=== PATIENT | female | born 1970 | race Caucasian/White ===

== ENCOUNTER 2016-08-15 23:47 | Inpatient (IN) ==
[2016-08-16] MEDS ORDERED: PANTOPRAZOLE 40 MG VIAL IV STA (00:15)
[2016-08-16] MEDS ORDERED: METOCLOPRAMIDE 10 MG/2 ML VIAL IV STA (00:15)
[2016-08-16] MEDS ORDERED: ONDANSETRON 4 MG/2 ML VIAL IV STA (00:15)
--- NOTE | 2016-08-16 00:21 | Emergency Department Note ---
Arrival - Arrival Chief Complaint: Abdominal / Flank Pain Stated Complaint: upper right side abdominal pain ED Nursing Triage Note: C/C N/V, severa right upper abd pain that radiated into right flank. Mode of Arrival: Ambulatory Limitations: No Limitations Source: Patient Time Seen by Provider: 08/16/16 00:15 - History of Present Illness HPI Narrative: This 46-year-old white female presents with complaints of within 15 minutes after completing dinner, onset of right upper quadrant pain radiating to the back associated with nausea and vomiting without chills, fever, or diarrhea. The patient does not have a history per se of gallbladder disease but does have a history of renal stone disease although the distribution of pain is much different than previously. She denies a history of peptic ulcer disease, pancreatitis, regional enteritis, or other GI related disease. Currently although she appears uncomfortable she is in no acute medical distress Onset (ago): hour(s) (Patient presents 4 hours post onset of symptoms) Consistency: constant Allergies/Adverse Reactions: Allergies Allergy/AdvReac Type Severity Reaction Status Date / Time metronidazole [From Flagyl] Allergy Nausea Verified 08/15/16 23:55 Review of System - Review of System 12 point system: reviewed and no additional remarkable complaints except as stated - Review of System Constitutional: Present: as per HPI Gastrointestinal: Present: as per HPI Medical,Surgical,& Family Hx - Medical History Psychological: History of: ADHD, Depression Neurology: History of: Migraine Genitourinary: History of: Kidney Stones Gastrointestinal: History of: GI Problems (ibs) Musculoskeletal: History of: Back/Neck Problems (back spasms) - Surgical History Reproductive Surgeries: Surgical HX of;: Hysterectomy - Social History Smoking Status: Never smoker Frequency of Alcohol Use: None Type of Drug Use: None Exam Physical Examination: GENERAL: Well developed, well nourished white female in no acute distress. HEENT: Normocephalic. No trauma. Moist mucous membranes. EOMI. PERRLA. ENT NML NECK: Supple. No adenopathy. CARDIAC: Regular. No murmurs. CHEST: Clear to auscultation. No respiratory distress. ABDOMEN: Soft. Very tender right upper quadrant. Hypoactive bowel sounds. EXTREMITIES: No trauma. Normal ROM. No pedal edema. SKIN: No diaphoresis. No rash. NEURO: Alert. Neuro intact. But unusual affect no focal deficits. Vital Signs: Vital Signs Temperature 97.9 F 08/15/16 23:52 Pulse Rate 80 08/15/16 23:52 Respiratory Rate 20 08/15/16 23:52 Blood Pressure 160/108 08/15/16 23:52 O2 Sat by Pulse Oximetry 100 08/15/16 23:52 Course - Reevaluation(s) Reevaluation #1: Discussed with patient need for hospitalization and operative intervention. - Consultations Consultation #1: Discussed with Dr. Alfaro who will admit for further evaluation treatment. Results - Labs CBC & BMP: 08/16/16 00:07 08/16/16 00:07 Labs: I reviewed the patient's laboratory noted its normalcy - Diagnostic Findings Procedure: CT Abdomen and Pelvis: image reviewed by me, report reviewed by me ( No evidence of renal stone but confirmation of gallbladder stones and sludge), Ultrasound: image reviewed by me, report reviewed by me (Dilated gallbladder with thickened gallbladder wall as well as evidence of multiple stones.) Disposition Clinical Impression: Cholecystitis, Cholelithiasis Case discussed with: patient, patient's family Disposition: Still a Patient Condition: Stable Time of Disposition: 01:42
[2016-08-16] MEDS ORDERED: PANTOPRAZOLE 40 MG VIAL IV ONE (00:23)
[2016-08-16 00:24] LABS: Basophils # 0.1 10*3/uL (0.0-0.2); Basophils % 0.6 % (0.0-0.8); Eosinophils # 0.3 10*3/uL (0.0-0.87); Eosinophils % 3.2 % (0.00-10.9); Hematocrit 39.9 VOL% (35.7-47.0); Hemoglobin 12.7 GM/DL (12.0-16.0); Immature Granulocytes % 0.3 %; Immature Granulocytes Absolute 0.03 #; Lymphocytes # 3.2 10*3/uL (1.4-4.0); Lymphocytes % 35.6 % (21.3-54.2); Mean Corpuscular HGB Conc 31.8 GM/DL (32-36); Mean Corpuscular Hemoglobin 29 PG (27-34); Mean Corpuscular Volume 89.9 FL (87-102); Monocytes # 0.9 10*3/uL (0.11-0.8); Monocytes % 9.7 % (1.7-12.7); Neutrophils # 4.5 10*3/uL (1.4-7.4); Neutrophils % 50.6 % (38.7-73.9); Platelet Count 305 T/CUMM (130-400); Red Blood Count 4.44 MC/CUMM (3.8-5.5); Red Cell Distribution Width 12.4 % (9.3-17.3); White Blood Count 8.9 T/CUMM (4-12)
[2016-08-16] MEDS ORDERED: ONDANSETRON 4 MG/2 ML VIAL ONE ×2 (00:24→10:19)
[2016-08-16] MEDS ORDERED: METOCLOPRAMIDE 10 MG/2 ML VIAL ONE (00:24)
[2016-08-16 00:45] LABS: Albumin 4.1 G/DL (3.4-5.0); Bilirubin,Total 0.5 MG/DL (0.2-1.0); Calcium 9.3 MG/DL (8.5-10.1); Osmolality,Calculated 278.4 MOS/KG (273-304); Total Protein 6.8 G/DL (6.4-8.3)
[2016-08-16] MEDS ORDERED: HYDROmorphone 2 MG/1 ML VIAL ONE ×2 (00:50→12:01)
[2016-08-16] MEDS ORDERED: HYDROmorphone 2 MG/1 ML VIAL IV STA (00:51)
[2016-08-16] MEDS ORDERED: LEVOFLOXACIN INJ 750 MG in PREMIX 1 EACH IV STA (00:51)
[2016-08-16] MEDS ORDERED: LEVOFLOXACIN INJ 150 ML IV ONE (01:37)
[2016-08-16] MEDS ORDERED: HYDROmorphone 2 MG/1 ML VIAL IV PRN (01:39)
[2016-08-16] MEDS ORDERED: ONDANSETRON 4 MG/2 ML VIAL IV PRN (01:39)
[2016-08-16] MEDS: SODIUM CHLORIDE 0.9% 1,000 ML IV SCH ×3 (02:50→21:18)
[2016-08-16 04:55] LABS: Apearance,Urine CLOUDY (Clear); Bilirubin,Urine Negative (Negative); Blood, Urine Negative (Negative); Glucose,Urine (UA) Negative (Negative); Ketones,Urine Negative (Negative); Mucus,Urine Few /LPF (Occasional); Nitrite,Urine Negative (Negative); Protein,Urine Negative; RBC,Urine 1 /HPF (0-4); Squamous Epithelial Cell,Urine Occasional /HPF (0-10); Urine Color Yellow (Yellow); Urine Specific Gravity 1.017 (1.001-1.035); Urine Urobilinogen < 2.0 EU/DL (0.2-1.0); WBC,Urine 1 /HPF (0-6)
--- NOTE | 2016-08-16 07:37 | CT Report ---
History is kidney stones, epigastric abdominal pain There is gallbladder distention with very minimal indistinctness in the surrounding fat. No secondary signs of acute ureteral obstruction seen Bowel is unopacified No enlarged retroperitoneal nodes seen Pelvis: No free fluid or focal laboratory changes seen Impression: Nonspecific gallbladder distention with minimal indistinctness in the surrounding fat. Is there any clinical question of acute cholecystitis? The CT exam was performed using one or more of the following dose reduction techniques: Automated exposure control, adjustment of the mA and/or kV according to patient size, or use of iterative reconstruction technique. PROCEDURE INTERPRETED AT [facility] DEPARTMENT OF RADIOLOGY Final Report Signed by: Dr. Karen Rogers
--- NOTE | 2016-08-16 09:12 | General Surg History&Physical ---
Assessment and Plan (1) Acute cholecystitis Status: Acute Assessment and plan: Impression: Acute cholecystitis next Plan: Patient's history and exam is consistent with acute cholecystitis. On ultrasound she had sludge and debris in the gallbladder which was distended as well as gallbladder wall thickening. Common bile duct was dilated but no stones seen within the common bile duct. CT scan showed no other pathology. LFTs are normal. I've discussed options with the patient and she would like to proceed with cholecystectomy. We discussed the procedure in house performed and the anticipated recovery. The risk of the procedure including bleeding, infection, damage to surrounding structures, need for further surgery, injury to the biliary tree, need for postoperative ERCP, and conversion to an open procedure were all discussed in detail. She would like to proceed as soon as possible. Current Visit: Yes History of Present Illness Chief complaint: abdominal pain History of present illness: Ms. Gomez is a 46 year old female who presented to the emergency room with abdominal pain. She was seen at an outside facility and transferred here with a diagnosis of cholecystitis. She ate supper late last night and about 30 minutes to an hour after eating began to develop epigastric pain and right upper quadrant pain. She had nausea and vomiting which did not relieve the pain. She denies any fever. She has no chest pain or shortness of breath. She has no heart or lung problems. Previous surgeries include cervical fusion hysterectomy diagnostic laparoscopy for endometriosis and appendectomy. She has a history of irritable bowel. She's never had any pain like this before. Home Medications Medication Instructions Recorded Confirmed Type No Known Home Medications [No 08/16/16 08/16/16 History Known Home Medications] Allergies Allergy/AdvReac Type Severity Reaction Status Date / Time metronidazole [From Flagyl] Allergy Nausea Verified 08/15/16 23:55 Medical,Surgical,& Family Hx - Medical History Psychological: History of: ADHD, Depression Neurology: History of: Migraine Genitourinary: History of: Kidney Stones Gastrointestinal: History of: Hemorrhoids (surgery), GI Problems (ibs) Musculoskeletal: History of: Back/Neck Problems (back spasms) Hematology: History of: Anemia Reproductive: History of: Endometriosis - Surgical History HEENT Surgeries: Surgical HX of: Tonsilectomy & Adenoidectomy (both) Reproductive Surgeries: Surgical HX of;: Hysterectomy (total) Orthopedic Surgeries: Surgical HX of;: Spinal Surgery (c6-7 cervical fusion) - Family History Family History: Reports;: Family Diabetes (father), Family Hypertension (father) - Social History Smoking Status: Never smoker Frequency of Alcohol Use: None Type of Drug Use: None Exam - Constitutional Vitals: Period Temp Pulse Resp BP Sys/Rosenthal Pulse Ox Last 24 Hr 96.8 F-99.3 F 77-89 18-20 106-150/60-92 100-100 General appearance: no acute distress - Head Head exam: Present: normocephalic - Neck Neck exam: Present: normal inspection - Respiratory Respiratory exam: Present: clear to auscultation bilaterally - Cardiovascular Cardiovascular exam: Present: RRR - GI/Abdominal GI/Abdominal exam: Present: soft (very tender to palpation in the right upper quadrant with positive Evans sign. Remainder of abdomen is benign. Nondistended.) - Extremities Exam Extremities exam: Present: normal inspection - Back Exam Back exam: Present: normal inspection - Neurological Exam Neurological exam: Present: alert, oriented X3 Speech: Present: normal - Skin Skin exam: Present: normal color 12 point system: reviewed and no additional remarkable complaints except as stated Results - Labs CBC & BMP: 08/16/16 00:07 08/16/16 00:07 Lab Results: I have reviewed the past 24 hour labs - Diagnostic Findings Procedure: CT Abdomen and Pelvis: image reviewed by me, report reviewed by me, Ultrasound: report reviewed by me
[2016-08-16] MEDS ORDERED: LIDOCAINE 2%/EPI 20 ML VIAL ONE (09:23)
[2016-08-16] MEDS ORDERED: BUPIVACAINE MPF 0.25% /EPI 30 ML VIAL ONE (09:23)
[2016-08-16] MEDS ORDERED: TISSUE ADHESIVE 1 EACH APPLICATOR TOP ONE (09:24)
[2016-08-16] MEDS: METOCLOPRAMIDE 10 MG/2 ML VIAL IV SCH ×3 (09:36→21:10)
[2016-08-16] MEDS: PANTOPRAZOLE 40 MG VIAL IV SCH (09:38)
[2016-08-16] MEDS ORDERED: SCOPOLAMINE 1.5 MG PATCH TRANSDERM ONE ×2 (09:56→10:06)
[2016-08-16] MEDS ORDERED: LIDOCAINE 100 MG/5 ML SYRINGE ONE (10:19)
[2016-08-16] MEDS ORDERED: ROCURONIUM 100 MG/10 ML VIAL IV ONE (10:19)
[2016-08-16] MEDS ORDERED: DEXAMETHASONE 10 MG/1 ML VIAL ONE (10:19)
[2016-08-16] MEDS ORDERED: KETOROLAC 30 MG/1 ML VIAL ONE (10:19)
[2016-08-16] MEDS ORDERED: PHENYLEPHRINE 1 MG/10 ML SYRINGE IV ONE (10:19)
[2016-08-16] MEDS ORDERED: PROPOFOL 200 MG/20 ML VIAL IV ONE (10:19)
[2016-08-16] MEDS ORDERED: GLUCAGON 1 MG VIAL ONE (10:58)
--- NOTE | 2016-08-16 11:58 | Operative Note ---
Date of procedure: 08/16/16 Pre-op diagnosis: acute cholecystitis Post-op diagnosis: same (choledocholithiasis as well) Procedure: Procedure performed: Laparoscopic cholecystectomy with intraoperative cholangiogram #2 supervision and interpretation of fluoroscopy next Procedure in detail: After informed consent was obtained, the patient was taken operating suite and laid supine on the operating table. After general anesthesia was induced the abdomen was prepped and draped in usual sterile fashion. After procedural pause local anesthetic and straighten the skin and subcutaneous tissue just above the umbilicus. Incision was made and dissection carried down through skin and soft tissue. Fascia identified and grasped with Dakota's and elevated. Fascial incision was made. Abdominal cavity was entered bluntly. Finger sweep revealed no adhesions. Pierce trocar inserted and the bowel and mesentery in the area were inspected and found be free of any violation. Next patient was patient reverse Trendelenburg position rotated to the left. 25 mm trochars placed in the right upper quadrant 11 mm subxiphoid trocar was placed all under visualization. Gallbladder identified it appeared slightly ischemic and inflamed. There was not a lot of inflammation in the triangle of [place]. All bleeders retracted superiorly. Infundibulum the gallbladder retracted toward the right hip. Dissection carried out from a lateral to medial approach and the triangle of [place]. The cystic duct and cystic artery were identified and isolated. Using a critical view technique these were all 2 structures entering the gallbladder. A clip was placed the junction of the cystic duct and neck of the gallbladder and partial transection might on the cystic duct. Going to catheter inserted and secured in place. Intraoperative glandular and performed. Cystic duct common bile duct intra- next hepatic ducts all filled. There was no contrast seen entering the small bowel. There appeared to be a small meniscus at the bottom of the contrast at the common bile duct and I suspect this represents a very small stone. Intraoperative IV glucagon was given and I waited over 10 minutes and tried to flushed the duct but was unsuccessful in getting any further contrast to reach the small bowel. The cholangiocatheter was removed and 2 clips placed on the cystic duct just distal to the partial transection and the transection completed. Anterior and posterior branch of the cystic artery were dissected and triple clipped and transected high up along the gallbladder wall. The gallbladder was removed from the gallbladder fossa using hook cautery and placed in the Endo Catch sac. It was removed through the Pierce trocar site. Pneumoperitoneum reachieved. Right upper quadrant thoroughly irrigated and suctioned. Clips inspected found be intact no leakage of bilious or sanguinous fluid. Irrigant remained clear was all suctioned. There was good hemostasis. 10 Romansh Doni drain placed in the gallbladder fossa and brought out through the lateral trocar site secured in place with 2-0 nylon. Remaining trochars were removed as the abdomen was desufflated. Fascia at the Pierce trocar site closed using 0 Vicryl [id number] interrupted suture. Wounds irrigated and suction. Deep dermal layer closed with 3-0 Vicryl. 4 Monocryl used to close skin. Sterile dressings applied. Patient was extubated and taken recovery room in stable condition. All lap and needle counts were correct at the end of the case. The gallbladder was palpated before sending to pathology and I could feel a few very small stones within the lumen. Anesthesia: MARIEA Surgeon / Physician: Brendan Loredo Estimated blood loss: other (less than 25 mL) Specimens: other (gallbladder) Condition: stable Disposition: PACU Results - Labs CBC & BMP: 08/16/16 00:07 08/16/16 00:07 Discharge Plan - Discharge Medications No Action No Known Home Medications [No Known Home Medications] - Follow Up or Referral - Forms/Instructions
--- NOTE | 2016-08-16 11:59 | Anesthesia ---
Anesthesia Post OP - Post Ansesthetic Evaluation Patient seen in post op: Yes Resp: within normal limits CV: within normal limits Mental: within normal limits Temp: within normal limits [id number]: within normal limits Nausea and Vomiting: within normal limits Pain: within normal limits
[2016-08-16] MEDS ORDERED: SEVOFLURANE 1 UNIT/15 MINUTE INH ONE (12:00)
[2016-08-16] MEDS ORDERED: fentaNYL 100 MCG/2 ML VIAL ONE (12:01)
[2016-08-16] MEDS ORDERED: MIDAZOLAM 2 MG/2 ML VIAL ONE (12:01)
--- NOTE | 2016-08-16 14:54 | Fluoroscopy Report ---
History is abdominal pain, cholecystectomy 84 seconds fluoroscopy time provided in the operating room during an OR cholangiogram performed by the referring physician. There is dilatation of the common bile duct with a tiny persistent rounded filling defect in the distal common duct. No contrast passes into the duodenum. impression: Obstructive, tiny distal common bile duct stone PROCEDURE INTERPRETED AT [facility] DEPARTMENT OF RADIOLOGY Final Report Signed by: Dr. Karen Rogers
[2016-08-17] MEDS: LEVOFLOXACIN INJ 750 MG in PREMIX 1 EACH IV SCH (03:17)
[2016-08-17] MEDS: METOCLOPRAMIDE 10 MG/2 ML VIAL IV SCH ×4 (03:18→20:40)
[2016-08-17 06:39] LABS: Basophils % 0.1 % (0.0-0.8); Hematocrit 34.1 VOL% (35.7-47.0); Hemoglobin 10.9 GM/DL (12.0-16.0); Immature Granulocytes % 0.4 %; Immature Granulocytes Absolute 0.03 #; Lymphocytes # 1.8 10*3/uL (1.4-4.0); Lymphocytes % 22.3 % (21.3-54.2); Mean Corpuscular Hemoglobin 29 PG (27-34); Mean Corpuscular Volume 90.7 FL (87-102); Mean Platelet Volume 10.4 FL (9.6-12.0); Monocytes # 0.9 10*3/uL (0.11-0.8); Monocytes % 11.5 % (1.7-12.7); Neutrophils # 5.4 10*3/uL (1.4-7.4); Neutrophils % 65.7 % (38.7-73.9); Platelet Count 236 T/CUMM (130-400); Red Blood Count 3.76 MC/CUMM (3.8-5.5); Red Cell Distribution Width 12.6 % (9.3-17.3); White Blood Count 8.2 T/CUMM (4-12)
[2016-08-17 06:48] LABS: INR 1.1; PT Patient Result 11.7 SECS
[2016-08-17] MEDS: SODIUM CHLORIDE 0.9% 1,000 ML IV SCH ×3 (06:56→20:39)
[2016-08-17 07:01] LABS: Bilirubin,Direct 0.6 MG/DL (0.0-0.20); Bilirubin,Indirect 0.3 MG/DL (0.0-1.0); Bilirubin,Total 0.9 MG/DL (0.2-1.0); Total Protein 5.4 G/DL (6.4-8.3)
[2016-08-17 07:09] LABS: Albumin 3.1 G/DL (3.4-5.0); Bilirubin,Total 0.9 MG/DL (0.2-1.0); Calcium 8.4 MG/DL (8.5-10.1); Osmolality,Calculated 279.3 MOS/KG (273-304); Total Protein 5.4 G/DL (6.4-8.3)
--- NOTE | 2016-08-17 08:14 | Event Note ---
Status post laparoscopic cholecystectomy. Patient is doing well. She feels better since surgery. She is nothing by mouth for ERCP today. She had a tiny stone in her common duct which is unable to be flushed even with administration of glucagon. I discussed the case with Dr. Macdonald. He'll plan for ERCP today. Her abdomen is soft and appropriately tender and nondistended. The incisions are okay and the GANESH drain has nonbilious output.
--- NOTE | 2016-08-17 08:42 | Gastrointestinal Consult Note ---
<Janessa Maloney - Last Filed: 08/17/16 08:37> Assessment and Plan (1) Choledocholithiasis Status: Acute Assessment and plan: 08/17-sudden onset abdominal pain with nausea and vomiting with findings of cholecystitis. Status post laparoscopic cholecystectomy on yesterday with intraoperative cholangiogram showing tiny common bile duct stone. Elevated LFTs today. Plan to proceed with ERCP today. Plan an addendum to followed by Dr. Almendarez Current Visit: Yes History of Present Illness Chief complaint: Choledocholithiasis History of present illness: Ms. Gomez is a 46 year old female who presented to the emergency room with onset of abdominal pain. She was originally diagnosed with cholecystitis at an outside facility and transferred to our facility for further care. Patient states that she had a sudden onset of right upper quadrant pain with nausea and vomiting shortly after ingesting a meal on Tuesday night. She had denied any fever chills diarrhea. She has a history of renal stones however stated this pain was nothing similar to that. Patient was found on ultrasound to have sludge and debris in her gallbladder as well as gallbladder distention and thickening. She was also found to have a dilated common bile duct with no visible stones and normal LFTs on admission. She underwent an laparoscopic cholecystectomy with intraoperative cholangiogram on yesterday. Her intraoperative cholangiogram showed an obstructive tiny distal common bile duct stone. On this morning she is noted to have an elevation in her LFTs. She is having mild postoperative pain at present time however denies any nausea or vomiting. She is afebrile. Discussed with patient regarding the ERCP procedure and risk. Patient agrees to proceed with procedure this morning Home Medications Medication Instructions Recorded Confirmed Type No Known Home Medications [No 08/16/16 08/16/16 History Known Home Medications] Allergies Allergy/AdvReac Type Severity Reaction Status Date / Time metronidazole [From Flagyl] Allergy Nausea Verified 08/15/16 23:55 Medical,Surgical,& Family Hx - Medical History Psychological: History of: ADHD, Depression Neurology: History of: Migraine Genitourinary: History of: Kidney Stones Gastrointestinal: History of: Hemorrhoids (surgery), GI Problems (ibs) Musculoskeletal: History of: Back/Neck Problems (back spasms) Hematology: History of: Anemia Reproductive: History of: Endometriosis - Surgical History HEENT Surgeries: Surgical HX of: Tonsilectomy & Adenoidectomy (both) Reproductive Surgeries: Surgical HX of;: Hysterectomy (total) Orthopedic Surgeries: Surgical HX of;: Spinal Surgery (c6-7 cervical fusion) - Family History Family History: Reports;: Family Diabetes (father), Family Hypertension (father) - Social History Smoking Status: Never smoker Frequency of Alcohol Use: None Type of Drug Use: None - Constitutional Constitutional: Present: as per HPI - EENT Eyes: Present: as per HPI Ears: Present: as per HPI Nose, mouth and throat: Present: as per HPI - Cardiovascular Cardiovascular: Present: as per HPI - Respiratory Respiratory: Present: as per HPI - Gastrointestinal Gastrointestinal: Present: as per HPI, abdominal pain - Genitourinary Genitourinary: Present: as per HPI - Musculoskeletal Musculoskeletal: Present: as per HPI - Neurological Neurological: Present: as per HPI - Psychiatric Psychiatric: Present: as per HPI - Endocrine Endocrine: Present: as per HPI - Hematologic/Lymphatic Hematologic/Lymphatic: Present: as per HPI Exam - Constitutional Vitals: Period Temp Pulse Resp BP Sys/Rosenthal Pulse Ox Last 24 Hr 98.1 F-100.0 F 62-113 16-20 85-164/51-90 95-100 General appearance: normal weight, no acute distress - Head Head exam: Present: normal inspection, normocephalic - Eye Eye exam: Present: other (Lids and conjunctive are). Absent: scleral icterus - ENT ENT exam: Present: normal exam, normal oropharynx - Neck Neck exam: Present: normal inspection - Respiratory Respiratory exam: Present: clear to auscultation bilaterally. Absent: rales, rhonchi, wheezes - Cardiovascular Cardiovascular exam: Present: regular rate and rhythm. Absent: diastolic murmur , JVD, systolic murmur - GI/Abdominal GI/Abdominal exam: Present: normal bowel sounds, tenderness, soft. Absent: ascites, distended, mass, organomegaly - Extremities Exam Extremities exam: Present: normal inspection, full ROM - Back Exam Back exam: Present: normal inspection - Neurological Exam Neurological exam: Present: alert, oriented X3 - Psychiatric Psychiatric exam: Present: normal affect, normal mood - Skin Skin exam: Present: normal color, warm, dry Results - Labs CBC & BMP: 08/17/16 06:30 08/17/16 06:30 Lab Results: I have reviewed the past 24 hour labs Specialty Discharge - Follow Up or Referrals Follow up with: Brendan Loredo MD [Physician] - 08/24/16 10:45 am <Demetris Almendarez - Last Filed: 08/17/16 14:07> History of Present Illness History of present illness: Ms. Gomez is a 46 year old female Exam - Constitutional Vitals: Period Temp Pulse Resp BP Sys/Rosenthal Pulse Ox Last 24 Hr 98.1 F-100.0 F 61-113 18-23 85-156/51-99 95-100 Results - Labs CBC & BMP: 08/17/16 06:30 08/17/16 06:30
[2016-08-17] MEDS: PANTOPRAZOLE 40 MG VIAL IV SCH (09:57)
--- NOTE | 2016-08-17 11:22 | Pathology Report from [facility] ---
ACCESSION # : [id number] PATIENT NAME : Benjamin Walton ORDERING DR : Brendan Loredo MD CLINICAL HX: Cholecystitis POST-OP DX: Same SPECIMEN INFO: Gallbladder GROSS DESCRIPTION: The specimen is received in formalin labeled with the patient 's name Benjamin Walton consists of an intact gallbladder measuring 10.6 x 4.6 cm. The serosa is smooth, shiny ca pink. The gallbladder wall has a thickness of 0.1 cm. The mucosa is velvety pink stoddard. The lumen contains watery yellow brown bile within the bile are numerous round brown stones collectively measuring 4.5 x 2 cm. [employer] Sorter tissue is submitted in one cassette. DIAGNOSIS FOR BENJAMIN WALTON: GALLBLADDER, CHOLECYSTECTOMY: Acute and chronic cholecystitis. Cholelithiasis. SERVICE DATE: 08/16/2016 REPORT DATE: 08/17/2016 PATHOLOGIST: Kp Beltran M.D. MTDD
[2016-08-17] MEDS ORDERED: ONDANSETRON 4 MG/2 ML VIAL ONE (13:40)
[2016-08-17] MEDS ORDERED: LIDOCAINE 100 MG/5 ML SYRINGE ONE (13:40)
[2016-08-17] MEDS ORDERED: GLYCOPYRROLATE 0.4 MG/2 ML VIAL ONE (13:40)
[2016-08-17] MEDS ORDERED: PROPOFOL 200 MG/20 ML VIAL IV ONE (13:40)
--- NOTE | 2016-08-17 14:08 | History and Physical Update ---
History and Physical Update - History and Physical H&P was reviewed, the patient examined and there: are no changes in the patients condition since last H&P was completed. - Physical Exam Mental Status: alert and oriented Heart: regular rate and rhythm Lung: clear to auscultation Abdomen: within normal limits Vitals: within normal limits
--- NOTE | 2016-08-17 14:15 | Operative Note ---
Date of procedure: 08/17/16 Pre-op diagnosis: Choledocholithiasis Procedure: Procedure: Endoscopic retrograde cholangiography with common bile duct sphincterotomy and stone/sludge removal with occlusion balloon Brief clinical abstract: Patient is a 46-year-old female admitted with symptomatic gallstones with biliary pain. She had cholecystectomy laparoscopically yesterday with abnormal cholangiogram intraoperatively suggesting distal common bile duct stone. She is comfortable today with no abdominal pain. Procedure findings: After informed consent was obtained, patient was placed in the prone position. Therapeutic video duodena scope was inserted into the upper soft and blind fashion with no resistance encountered. Esophageal mucosa appeared normal. Stomach was examined including retroflexed view of the cardia and fundus with no abnormality seen. The pyloric channel, duodenal bulb, second and third portion of the duodenum including the appearance of the ampulla appeared normal. Sphincterotome was used and common bile duct selectively cannulated. Biliary tree was filled with contrast. There was dilation of the common bile duct/common hepatic duct to maximal diameter of approximately 11 mm. Small filling defect was noted in the distal common bile duct. Cystic duct clips were in place with no sign of leak after contrast filling. Intrahepatics had normal appearance. Common bile duct sphincterotomy was performed over a 0.035 inch guidewire located in the bile duct with sphincterotomy approximately 1 cm diameter. Occlusion balloon was advanced through the sphincterotomy opening into the proximal common hepatic duct and dragged distally. A moderate amount of sludge/particulate stone material passed into the duodenum and was adherent to the balloon. 2 further passes were made with no obvious common bile duct filling defects visible. Occlusion cholangiogram was obtained afterwards to verify no residual stone/filling defects. Pancreatogram was not obtained. The endoscope was removed afterwards. She appeared to tolerate the procedure well. Impression: #1 choledocholithiasis/common bile duct sludge-status post endoscopic removal #2 dilated common bile duct/common hepatic duct related to #1 #3 pancreatogram intentionally not obtained Recommendations: Follow symptomatically after above. Could discharge home today if no signs of pancreatitis. Anesthesia: MAC Surgeon / Physician: Demetris Almendarez Estimated blood loss: minimal Specimens: none sent Condition: stable Disposition: post procedure unit Results - Labs CBC & BMP: 08/17/16 06:30 08/17/16 06:30 Discharge Plan - Discharge Medications No Action No Known Home Medications [No Known Home Medications] - Follow Up or Referral Follow Up: Brendan Loredo MD [Physician] - 08/24/16 10:45 am - Forms/Instructions
--- NOTE | 2016-08-17 14:21 | Anesthesia ---
Anesthesia Post OP - Post Ansesthetic Evaluation Patient seen in post op: Yes Resp: within normal limits CV: within normal limits Mental: within normal limits Temp: within normal limits [id number]: within normal limits Nausea and Vomiting: within normal limits Pain: within normal limits
[2016-08-17] MEDS ORDERED: MIDAZOLAM 2 MG/2 ML VIAL ONE (14:28)
[2016-08-17] MEDS ORDERED: fentaNYL 100 MCG/2 ML VIAL ONE (14:28)
--- NOTE | 2016-08-17 14:39 | Fluoroscopy Report ---
Exam: FL ERCP w sphincterotomy Date: 08/17/2016 8:36 AM Indication: Choledocholithiasis Comparison: Intraoperative cholangiogram 1 day earlier. Findings: 2 minutes and 39 seconds fluoroscopy time and 18 cc of Omnipaque 240 were utilized. Previous cholecystectomy clips are present. ERCP was performed with the filling of the bile duct with a balloon sweep performed. Air bubbles present. No obvious defined stones otherwise noted. Slight dilatation of the bile duct system and sphincterotomy was performed. Impression: 1. Sphincterotomy without obvious stones with some sludge and debris however noted. 2. Prior cholecystectomy. PROCEDURE INTERPRETED AT [facility] DEPARTMENT OF RADIOLOGY Final Report Signed by: Dr. Demetris Farooq
[2016-08-17] MEDS ORDERED: MEPERIDINE 25 MG/1 ML VIAL IV ONE (14:50)
[2016-08-17] MEDS ORDERED: MEPERIDINE 50 MG/1 ML VIAL ONE (14:50)
--- NOTE | 2016-08-17 19:03 | Event Note ---
Patient seen after ERCP earlier today. Complains of some abdominal soreness but no real abdominal pain or nausea. Vital signs stable. She is alert in no distress. Abdomen is soft, nontender, bowel sounds present. Appears stable after ERCP/sphincterotomy and stone removal.
[2016-08-18] MEDS: LEVOFLOXACIN INJ 750 MG in PREMIX 1 EACH IV SCH (01:56)
[2016-08-18] MEDS: SODIUM CHLORIDE 0.9% 1,000 ML IV SCH ×2 (01:57→09:12)
[2016-08-18] MEDS: METOCLOPRAMIDE 10 MG/2 ML VIAL IV SCH ×2 (01:57→09:14)
[2016-08-18 08:20] VITALS: BP 152/87
[2016-08-18] MEDS: PANTOPRAZOLE 40 MG VIAL IV SCH (09:15)
--- NOTE | 2016-08-18 10:38 | Discharge Summary ---
Hospital Course - Hospital Course Hospital Course: The patient is a 46-year-old female presented to the emergent with acute abdominal pain. She was found to have cholecystitis and taken to the operating room for laparoscopic cholecystectomy with Dr. Alfaro on 08/16/2016. At that time cholangiogram was also done and gastroenterology was consulted for ERCP. We appreciate Dr. Macdonald's assistance as he subsequently performed ERCP with common bile duct sphincterectomy and stone removal. Postoperatively, the patient's pain was well controlled and she tolerated p.o. diet without significant complication. She was mobilizing without difficulty. Voiding without difficulty. Positive flatus without bowel movement as patient has a history of chronic constipation. GANESH drain with serosanguineous drainage discontinued on day of discharge per Dr. Loredo. No complications to note. Diagnosis - Discharge Diagnosis (1) Acute cholecystitis Status: Acute (2) Choledocholithiasis Status: Acute Specialty Discharge - Follow Up or Referrals Follow up with: Brendan Loredo MD [Physician] - 08/24/16 10:45 am Discharge Plan - Discharge Data Disposition: Disch To Home/Self Care Condition at Discharge: Stable Discharge Diet: advance to your usual diet, high fiber diet, low fat, low cholesterol Activity: resume usual activities as tolerated, no lifting (No lifting, pushing or pulling > 15-20 lb) Hygiene: may shower Driving: other (No driving while taking narcotics) Contact your physician if you experience:: fever over 101, Difficulty voiding, Redness or swelling, Nausea/Vomiting, Shortness of breath, Bleeding, pain uncontrolled by pain medications Wound / Dressing Care Instructions: Keep wounds clean, dry and covered. Notify Dr. Loredo office with persistent wound drainage. - Discharge Medications New Ondansetron Tab [Zofran Tab] 4 mg PO Q6H #20 tablet HYDROcodone/ACETAMIN 5-325 [Pattison 5-325] 1 tablet PO Q4H PRN #30 tablet PRN Reason: Pain Moderate To Severe (4-10) - Follow Up or Referral Follow Up: Julian Piña MD [Primary Care Provider] - (Repeat liver function tests 10- 14d.) Brendan Loredo MD [Physician] - 2 Weeks - Forms/Instructions Additional Discharge Instructions: Return to work 2 weeks. Exam - Constitutional Vitals: Period Temp Pulse Resp BP Sys/Rosenthal Pulse Ox Last 24 Hr 89.9 F-99.6 F 61-105 15-23 133-157/78-111 95-100 General appearance: normal weight, no acute distress - Head Head exam: Present: normal inspection, normocephalic, atraumatic - Respiratory Respiratory exam: Present: clear to auscultation bilaterally - Cardiovascular Cardiovascular exam: Present: regular rate and rhythm - GI/Abdominal GI/Abdominal exam: Present: normal bowel sounds, tenderness (appropriate p/o tenderness), soft, other (Surgical incisions intact. Serosanguinous fluid in GANESH drain with mild serosanguinous drainage around drain tube - non expressible. No areas of erythema. ). Absent: distended, rebound - Extremities Exam Extremities exam: Absent: calf tenderness, edema - Neurological Exam Neurological exam: Present: alert, oriented X3 - Skin Skin exam: Present: normal color, warm Discharge Results Procedures and tests throughout hospitalization: 1. Laporoscopic cholecystectomy with cholangiogram 08/16/2016 - Dr. Brendan Loredo. 2. ERCP with CBD spincterectomy and stone removal 08/17/2016 - Dr. Almendarez Liver enzymes elevated post procedure. CT abd/pelvis on day of discharge with gallbladder distension and fat stranding Labs on day of discharge: None DS: Provider Date of admission: 08/16/16 01:37 Primary care physician: Julian Piña MD Attending physician on admission: Brendan Loredo MD Consults: 08/16/16 16:22 Consult to Physician [CONS] Routine Comment: ercp Consulting Provider: Demetris Almendarez Consult to Specialist Group: Gastroenterology When should Consulting Provider be notified: Now Person Notified: Haider Del Rio NP Date Notified: 08/16/16 Discharging clinician: Sheila Mobley PA-C
== END 2016-08-18 11:50 | disposition home or self-care (01) | DRG 419 ==
LOC: N.ED 23:47 → N.EDINP 08-16 01:37 → N.3E 08-16 02:26
PROVIDERS: ADMIT Surgery; ATTEND Surgery
PROC: LAPCHOL (2016-08-16 10:19)
PROC: ERCPWSP (ICD-10-PCS; 2016-08-17 11:00)

== ENCOUNTER 2017-09-14 08:52 | Observation (INO) ==
[2017-09-14] MEDS ORDERED: ENOXAPARIN 40 MG/0.4 ML SYRINGE SUBCUT SCH (09:00)
[2017-09-14] MEDS ORDERED: amLODIPine 5 MG TABLET ONE (09:28)
[2017-09-14] MEDS ORDERED: NITROGLYCERIN SL 0.4 MG TABLET SL PRN (09:28)
[2017-09-14] MEDS ORDERED: ENOXAPARIN 100 MG/ML SYRINGE SUBCUT STA (09:28)
[2017-09-14] MEDS ORDERED: ASPIRIN 325 MG TABLET PO STA (09:28)
[2017-09-14] MEDS ORDERED: ALUM/MAG/SIMETH/LIDO VISC 1:1 30 ML BOTTLE PO STA (09:28)
[2017-09-14 10:01] LABS: Basophils % 0.7 % (0.0-0.8); Eosinophils # 0.2 10*3/uL (0.0-0.87); Hematocrit 41.8 VOL% (35.7-47.0); Hemoglobin 13.7 GM/DL (12.0-16.0); Immature Granulocytes % 0.2 %; Immature Granulocytes Absolute 0.01 #; Lymphocytes # 1.8 10*3/uL (1.4-4.0); Lymphocytes % 33.8 % (21.3-54.2); Mean Corpuscular HGB Conc 32.8 GM/DL (32-36); Mean Corpuscular Hemoglobin 30 PG (27-34); Mean Corpuscular Volume 91.3 FL (87-102); Monocytes # 0.5 10*3/uL (0.11-0.8); Monocytes % 10.1 % (1.7-12.7); Neutrophils # 2.8 10*3/uL (1.4-7.4); Neutrophils % 52.2 % (38.7-73.9); Platelet Count 346 T/CUMM (130-400); Red Blood Count 4.58 MC/CUMM (3.8-5.5); Red Cell Distribution Width 12.1 % (9.3-17.3); White Blood Count 5.4 T/CUMM (4-12)
[2017-09-14 10:10] LABS: PT Patient Result 10.2 SECS
[2017-09-14 10:38] LABS: Alanine Aminotransferase 25 U/L (13-56); Albumin 3.9 G/DL (3.4-5.0); Alkaline Phosphatase 110 U/L (45-117); Aspartate Amino Transferase 19 U/L (0-37); Bilirubin,Total < 0.39 MG/DL (0.2-1.0); Blood Urea Nitrogen 14 MG/DL (7-18); Calcium 9.3 MG/DL (8.5-10.1); Glucose 79 MG/DL (74-106); Osmolality,Calculated 280.3 MOS/KG (273-304); Potassium 3.8 MMOL/L (3.5-5.1); Sodium 141 MMOL/L (136-145); Total Protein 7.7 G/DL (6.4-8.3)
[2017-09-14] MEDS ORDERED: NITROGLYCERIN 2% OINT 1 INCH/GM PACK TOP ONE (10:56)
[2017-09-14] MEDS ORDERED: NITROGLYCERIN 2% OINT 1 INCH/GM PACK TOP STA (11:10)
[2017-09-14] MEDS ORDERED: MORPHINE 4 MG/1 ML VIAL IV PRN (11:57)
[2017-09-14] MEDS ORDERED: ACETAMINOPHEN 325 MG TABLET PO PRN (11:57)
[2017-09-14] MEDS ORDERED: ONDANSETRON 4 MG/2 ML VIAL IV PRN (11:57)
[2017-09-14] MEDS ORDERED: SODIUM CHLORIDE 0.9% 1,000 ML IV SCH (13:00)
[2017-09-14 15:31] VITALS: BP 135/84
[2017-09-14] MEDS ORDERED: DOCUSATE SODIUM 100 MG CAPSULE PO SCH (21:00)
[2017-09-15] MEDS ORDERED: busPIRone 5 MG TABLET PO SCH (09:00)
[2017-09-15] MEDS ORDERED: amLODIPine 5 MG TABLET PO SCH (09:00)
[2017-09-15] MEDS ORDERED: PANTOPRAZOLE 40 MG TABLET PO SCH (09:00)
[2017-09-15] MEDS ORDERED: ASPIRIN EC 81 MG TABLET PO SCH (09:00)
== END 2017-09-14 18:45 | disposition home or self-care (01) ==
LOC: N.EDINP 08:52 → N.ED 08:52 → N.2E 11:45
PROVIDERS: ADMIT Family Medicine; ATTEND Family Medicine

== ENCOUNTER 2021-01-29 20:04 | Observation (INO) ==
[2021-01-29 20:26] LABS: Basophils # 0.1 10*3/uL (0.0-0.2); Basophils % 0.4 % (0.0-0.8); Eosinophils # 0.3 10*3/uL (0.0-0.87); Hematocrit 37.4 VOL% (35.7-47.0); Hemoglobin 12.1 GM/DL (12.0-16.0); Immature Granulocytes % 0.2 %; Immature Granulocytes Absolute 0.03 #; Lymphocytes # 5.2 10*3/uL (1.4-4.0); Lymphocytes % 38.3 % (21.3-54.2); Mean Corpuscular HGB Conc 32.4 GM/DL (32-36); Mean Corpuscular Volume 90.3 FL (87-102); Mean Platelet Volume 9.5 FL (9.6-12.0); Monocytes % 11.6 % (1.7-12.7); Neutrophils % 47.5 % (38.7-73.9); Platelet Count 367 T/CUMM (130-400); Red Blood Count 4.14 MC/CUMM (3.8-5.5); Red Cell Distribution Width 11.9 % (9.3-17.3); White Blood Count 13.6 T/CUMM (4-12)
[2021-01-29 20:47] LABS: Alanine Aminotransferase 39 U/L (13-56); Albumin 3.6 G/DL (3.4-5.0); Alkaline Phosphatase 103 U/L (45-117); Aspartate Amino Transferase 38 U/L (0-37); Bilirubin,Total < 0.39 MG/DL (0.20-1.00); Blood Urea Nitrogen 20 MG/DL (7-18); Calcium 9.3 MG/DL (8.5-10.1); Carbon Dioxide 24 MMOL/L (21-32); Estimated Glom Filtration Rate 102 ML/MIN; Glucose 102 MG/DL (74-106); Osmolality,Calculated 283.3 MOS/KG (273-304); Potassium 2.6 MMOL/L (3.5-5.1); Sodium 141 MMOL/L (136-145); Total Protein 7.1 G/DL (6.4-8.2)
[2021-01-29 20:53] LABS: Salicylate < 2.8 MG/DL (2.8-20)
[2021-01-29 20:54] LABS: Acetaminophen < 2.0 UG/ML (10-30)
[2021-01-29] MEDS ORDERED: SODIUM CHLORIDE 0.9% 1,000 ML IV STA (20:57)
[2021-01-29] MEDS ORDERED: POTASSIUM CHLORIDE RIDER 20 MEQ/100 ML PREMIX IV STA (21:01)
[2021-01-29] MEDS: POTASSIUM CHLORIDE RIDER 10 MEQ/100 ML PREMIX IV SCH ×2 (21:13→22:21)
[2021-01-29] MEDS ORDERED: guaiFENesin/DM ER 600-30 MG TABLET PO PRN (21:48)
[2021-01-29] MEDS ORDERED: ONDANSETRON 4 MG/2 ML VIAL IV PRN (21:48)
[2021-01-29] MEDS ORDERED: ACETAMINOPHEN 325 MG TABLET PO PRN (21:48)
[2021-01-29] MEDS ORDERED: DOCUSATE SODIUM 100 MG CAPSULE PO PRN (21:48)
[2021-01-29] MEDS ORDERED: NICOTINE 21 MG/24 HR PATCH TRANSDERM PRN (21:48)
[2021-01-29] MEDS ORDERED: DEXTROSE 50% 25 GM/50 ML VIAL IV PRN (21:48)
[2021-01-29] MEDS ORDERED: diphenhydrAMINE CAP 25 MG CAPSULE PO PRN (21:48)
[2021-01-29] MEDS ORDERED: GLUCAGON 1 MG VIAL IM PRN (21:48)
[2021-01-29] MEDS ORDERED: hydrALAZINE 20 MG/1 ML VIAL IV PRN (21:48)
[2021-01-29] MEDS ORDERED: POTASSIUM CHLORIDE 20 MEQ TABLET PO STA (21:51)
[2021-01-29 22:21] LABS: Bacteria,Urine Occasional /HPF (Few); Bilirubin,Urine Negative (Negative); Blood, Urine Negative (Negative); Glucose,Urine (UA) Negative (Negative); Ketones,Urine Negative (Negative); Mucus,Urine Occasional /LPF (Occasional); Nitrite,Urine Negative (Negative); Protein,Urine Negative; RBC,Urine 1 /HPF (0-4); Squamous Epithelial Cell,Urine Occasional /HPF (0-10); Urine Appearance CLEAR (Clear); Urine Color Yellow (Yellow); Urine Specific Gravity 1.011 (1.001-1.035); Urine Urobilinogen < 2.0 EU/DL (0.2-1.0)
[2021-01-29 22:29] LABS: Barbiturates Screen,Urine Negative (Negative); Benzodiazepines Screen,Urine Negative (Negative); Cannabinoid Screen,Urine Negative (Negative); Opiate Screen,Urine Negative (Negative); Phencyclidine Screen,Urine Negative (Negative)
[2021-01-30] MEDS: DEXT 5% NACL 0.9% KCL 40 MEQ 40 MEQ/1,000 ML BAG IV SCH ×2 (01:48→14:43)
[2021-01-30 06:50] LABS: Basophils % 0.1 % (0.0-0.8); Hematocrit 34.5 VOL% (35.7-47.0); Hemoglobin 11.3 GM/DL (12.0-16.0); Immature Granulocytes % 0.4 %; Immature Granulocytes Absolute 0.04 #; Lymphocytes # 1.1 10*3/uL (1.4-4.0); Lymphocytes % 12.2 % (21.3-54.2); Mean Corpuscular HGB Conc 32.8 GM/DL (32-36); Mean Corpuscular Volume 91.3 FL (87-102); Mean Platelet Volume 9.9 FL (9.6-12.0); Monocytes % 5.7 % (1.7-12.7); Neutrophils % 81.6 % (38.7-73.9); Platelet Count 319 T/CUMM (130-400); Red Blood Count 3.78 MC/CUMM (3.8-5.5); White Blood Count 9.1 T/CUMM (4-12)
[2021-01-30 07:13] LABS: Calcium 8.9 MG/DL (8.5-10.1); Osmolality,Calculated 279.3 MOS/KG (273-304); Potassium 3.9 MMOL/L (3.5-5.1)
[2021-01-30 07:18] LABS: Alanine Aminotransferase 42 U/L (13-56); Albumin 3.3 G/DL (3.4-5.0); Alkaline Phosphatase 95 U/L (45-117); Aspartate Amino Transferase 34 U/L (0-37); Bilirubin,Direct < 0.100 MG/DL (0.0-0.20); Bilirubin,Indirect 0.6 MG/DL (0.0-1.0); Total Protein 6.2 G/DL (6.4-8.2)
[2021-01-30] MEDS ORDERED: PANTOPRAZOLE 40 MG TABLET PO SCH (09:00)
[2021-01-30] MEDS: POTASSIUM CHLORIDE RIDER 10 MEQ/100 ML PREMIX IV PRN ×2 (09:35→10:43)
[2021-01-30 11:29] VITALS: BP 136/78
== END 2021-01-30 15:06 ==
LOC: EDUNIT# → EDBD → N.EDINP 20:04 → N.ED 20:04 → N.TELEN 01-30 01:00
PROVIDERS: ADMIT Internal Medicine; ATTEND Internal Medicine